=== PATIENT | female | born 1975 | race Caucasian/White ===

== ENCOUNTER 2016-11-17 03:35 | Emergency (ER) | payer SELFPAY ==
--- NOTE | 2016-11-17 03:58 | ED ---
Respiratory - HPI Summary HPI Summary: Patient presents for delayed evaluation of cough. Patient has had 1 week of nasal congestion, cough. Smokes cigarettes daily, but is around sick patrons at the [employer]. No allev factors. Aggrav by smoking. Not influenza vaccinated ever. 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 - Initial Severity: Mild Current Severity: Mild Pain Intensity: 8 Character: Cough (Nonproductive) Aggravating Factor(s): URI, Other - Cigarette smoking Alleviating Factor(s): Nothing Associated Signs and Symptoms: URI, Chest Pain with Cough, Nasal Congestion - Allergy/Home Medications Allergies/Adverse Reactions: Allergies Allergy/AdvReac Type Severity Reaction Status Date / Time Aspirin Allergy Nausea Verified 08/24/15 09:51 Banana Allergy Anaphylatic Verified 11/17/16 03:39 Shock Bee Venom Allergy Anaphylatic Verified 11/17/16 03:40 Shock Tea Allergy Anaphylatic Verified 11/17/16 03:39 Shock PMH/Surg Hx/FS Hx/Imm Hx Previously Healthy: Yes Endocrine/Hematology History: Denies: Hx Diabetes, Hx Thyroid Disease Cardiovascular History: Denies: Hx Hypertension Respiratory History: Denies: Hx Asthma, Hx Chronic Obstructive Pulmonary Disease (COPD) GI History: Denies: Hx Ulcer Infectious Disease History: No Infectious Disease History: Denies: Hx Clostridium Difficile, Hx Hepatitis, Hx Human Immunodeficiency Virus (HIV), Hx of Known/Suspected MRSA, Hx Shingles, Hx Tuberculosis, Traveled Outside the in Last 30 Days - Social History Alcohol Use: None Substance Use Type: Reports: None Smoking Status (MU): Heavy Every Day Tobacco Smoker Amount Used/How Often: 15 PER DAY Review of Systems Negative: Fever, Chills Positive: Cough. Negative: Shortness Of Breath All Other Systems Reviewed And Are Negative: Yes Physical Exam Triage Information Reviewed: Yes Vital Signs On Initial Exam: Initial Vitals Temp Pulse Resp BP Pulse Ox 97.4 F 114 18 157/99 98 11/17/16 03:40 11/17/16 03:40 11/17/16 03:40 11/17/16 03:40 11/17/16 03:40 Vital Signs Reviewed: Yes Appearance: Positive: Well-Appearing, No Pain Distress, Well-Nourished Skin: Positive: Warm, Skin Color Reflects Adequate Perfusion, Dry Head/Face: Positive: Normal Head/Face Inspection Eyes: Positive: Normal, EOMI, EHSAN ENT: Positive: Pharyngeal erythema, Nasal congestion, TMs normal. Negative: Nasal drainage, TM bulging, TM dull, TM red, Tonsillar swelling, Tonsillar exudate, Trismus, Muffled/hoarse voice, Dental tenderness Neck: Positive: Supple, Nontender, No Lymphadenopathy Respiratory/Lung Sounds: Positive: Clear to Auscultation, Breath Sounds Present Cardiovascular: Positive: Normal, RRR, Pulses are Symmetrical in both Upper and Lower Extremities Abdomen Description: Positive: Nontender, No Organomegaly, Soft Musculoskeletal: Positive: Normal, Strength/ROM Intact Neurological: Positive: Normal, Sensory/Motor Intact, Alert, Oriented to Person Place, Time, CN Intact II-III, Normal Gait Diagnostics - Vital Signs Vital Signs Temp Pulse Resp BP Pulse Ox 11/17/16 03:40 97.4 F 114 18 157/99 98 - Laboratory Lab Statement: Any lab studies that have been ordered have been reviewed, and results considered in the medical decision making process. Disposition - Differential Dx - Cardiopulmonary Differential Diagnoses - Cardiopulmonary: Bronchitis, Lower Resp Infection, Other - Primary cocnern for URI with subsequent bronchitis; however, will eval for pneumonia and influenza. Discussed smoking cessation for more than 5 minutes. She and felt as if she deserved 5 days off from work, but did not want to stop smoking. - Diagnoses Provider Diagnoses: Bronchitis Discharge - Discharge Plan Condition: Stable Disposition: HOME Prescriptions: Albuterol HFA INHALER* [Ventolin HFA Inhaler*] 2 puff INH Q4H PRN #1 mdi PRN Reason: Cough Benzonatate CAP* [Tessalon CAP*] 100 mg PO TID #30 cap Forms: *Work Release Referrals: Yong Bradley MD [Primary Care Provider] -
[2016-11-17 04:56] VITALS: BP 152/94
--- NOTE | 2016-11-17 07:59 | RAD ---
INDICATION: Cough, low-grade fever, achiness for one week without improvement. Nausea and vomiting. Decreased appetite. Intermittent tobacco use. COMPARISON: May 23, 2012 TECHNIQUE: Dual energy PA and routine lateral views of the chest were obtained. REPORT: Mildly elevated lung volumes. Minimal prominence of the interstitial markings. No alveolar consolidation, focal pulmonary lesion, pleural effusion, pneumothorax. The heart, pulmonary vasculature, and mediastinal contours are unremarkable. Negative for free air beneath the diaphragm. Mild RIGHT convex curve of the spine centered at the lumbar sacral junction without new compared with the prior exam may be positional. IMPRESSION: Elevated lung volumes suggest potential obstructive lung disease. No evidence for pneumonia or other acute intrathoracic process.
== END 2016-11-17 04:54 | disposition home or self-care (01) ==
LOC: ED 03:35
DX: J40 Bronchitis, not specified as acute or chronic (principal); F17.210 Nicotine dependence, cigarettes, uncomplicated
CPT/HCPCS: 71020; 87502; 87651; 99283

== ENCOUNTER 2017-05-30 17:56 | Emergency (ER) | payer SELFPAY ==
[2017-05-30] MEDS ORDERED: Ibuprofen TAB* 600 MG PO ONE ×2 (19:37→20:57)
[2017-05-30] MEDS ORDERED: Cyclobenzaprine TAB* 10 MG PO ONE (19:39)
--- NOTE | 2017-05-30 20:12 | RAD ---
HISTORY: Fall, left flank pain COMPARISONS: None VIEWS: 6 , Frontal, lateral, coned-down lateral sacral, and bilateral oblique views of the lumbar spine. FINDINGS: ALIGNMENT: The alignment is normal. VERTEBRAL BODIES: The vertebral body heights are normal. The interpedicular distances are normal. There is mild anterolateral marginal osteophyte formation. JOINTS: There is mild facet hypertrophic change INTERVERTEBRAL DISCS: There is mild loss of intervertebral disc height. SOFT TISSUE: Unremarkable. OTHER: The pelvis is unremarkable. The lung bases are clear. IMPRESSION: MILD DEGENERATIVE CHANGES
--- NOTE | 2017-05-30 20:13 | RAD ---
HISTORY: Fall, hip pain COMPARISONS: None VIEWS: 3, Frontal view of the pelvis with frontal and frog-leg views of the left hip FINDINGS: BONE DENSITY: Normal. BONES: There is linear density of the left inferior pubic ramus extending to the inferior acetabulum JOINTS: There is no arthropathy. ALIGNMENT: There is no dislocation. SOFT TISSUES: Unremarkable. OTHER FINDINGS: None. IMPRESSION: POSSIBLE NONDISPLACED FRACTURE OF THE LEFT INFERIOR PUBIC RAMUS EXTENDING TO THE INFERIOR ACETABULUM. RECOMMEND CORRELATION WITH SITE OF PAIN
[2017-05-30 20:17] VITALS: BP 137/94
--- NOTE | 2017-05-30 20:53 | UC ---
Hip/Pelvis Pain - HPI Summary HPI Summary: fell last night at work landing on her lep hip---pain in her left hip - History Of Current Complaint Chief Complaint: UCBackPain Stated Complaint: BACK/HIP INJURY Time Seen by Provider: 05/30/17 19:26 Hx Obtained From: Patient Hx Last Menstrual Period: 05/08/17 ?: No Mechanism Of Injury: fall Onset/Duration: Sudden Onset, Lasting Days - 1 Timing: Constant Severity Initially: Moderate Severity Currently: Moderate Pain Intensity: 6 Pain Scale Used: 0-10 Numeric Location: Discrete At: - left hip Character Of Pain: Aching, Throbbing Aggravating Factor(s): Nothing Alleviating Factor(s): Nothing Associated Signs And Symptoms: Positive: Negative Related History: Occupational Injury - Allergies/Home Medications Allergies/Adverse Reactions: Allergies Allergy/AdvReac Type Severity Reaction Status Date / Time Aspirin Allergy Nausea Verified 05/30/17 18:08 Banana Allergy Anaphylatic Verified 05/30/17 18:08 Shock Bee Venom Allergy Anaphylatic Verified 05/30/17 18:08 Shock Tea Allergy Anaphylatic Verified 05/30/17 18:08 Shock PMH/Surg Hx/FS Hx/Imm Hx Previously Healthy: Yes - Surgical History Surgical History: None - Family History Known Family History: Positive: None - Social History Occupation: Employed Full-time Lives: With Family Alcohol Use: None Substance Use Type: None Smoking Status (MU): Heavy Every Day Tobacco Smoker Amount Used/How Often: 15 PER DAY Household Exposure Type: Cigarettes Cessation Counseling: Patient Advised to Stop Review of Systems Constitutional: Negative Skin: Negative Eyes: Negative ENT: Negative Respiratory: Negative Cardiovascular: Negative Gastrointestinal: Negative Genitourinary: Negative Motor: Negative Neurovascular: Negative Musculoskeletal: Arthralgia - left hip/pelvis Neurological: Negative Psychological: Negative All Other Systems Reviewed And Are Negative: Yes Physical Exam Triage Information Reviewed: Yes Appearance: Well-Appearing, Well-Nourished, Pain Distress - mild Vital Signs: Initial Vital Signs Temp 98.2 F 05/30/17 18:05 Pulse 109 05/30/17 18:05 Resp 18 05/30/17 18:05 BP 132/87 05/30/17 18:05 Pulse Ox 100 05/30/17 18:05 Vital Signs Reviewed: Yes Eye Exam: Normal Eyes: Positive: Conjunctiva Clear ENT Exam: Normal ENT: Positive: Normal ENT inspection, Hearing grossly normal Dental Exam: Normal Neck exam: Normal Neck: Positive: Supple, Nontender Respiratory Exam: Normal Respiratory: Positive: Chest non-tender, Lungs clear, Normal breath sounds, No respiratory distress, No accessory muscle use Cardiovascular Exam: Normal Cardiovascular: Positive: RRR, No Murmur, Pulses Normal, Brisk Capillary Refill Abdominal Exam: Normal Abdomen Description: Positive: Nontender, No Organomegaly, Soft Bowel Sounds: Positive: Present Musculoskeletal Exam: Normal Musculoskeletal: Positive: Strength Intact, ROM Intact, No Edema Neurological Exam: Normal Neurological: Positive: Alert, Muscle Tone Normal Psychological Exam: Normal Skin Exam: Normal Diagnostics - Radiology No standard instances Xray Interpretation: Positive (See Comments) - left inferior pubic rami non displaced fracture Radiology Interpretation Completed By: ED Physician, Radiologist Hip Injury Course/Dx - Course Course Of Treatment: non weight bearing, ibuprofen, ibuprofen close follow with Dr. Caldwell - Differential Dx/Diagnosis Differential Diagnosis/HQI/PQRI: Contusion, Fracture, Sprain, Strain Provider Diagnoses: left non displaced inferior pubic rami fracture Discharge - Discharge Plan Condition: Stable Disposition: HOME Prescriptions: Cyclobenzaprine TAB* [Flexeril 10 MG TAB*] 10 mg PO TID PRN #15 tab PRN Reason: muscle spasm Ibuprofen TAB* [Motrin TAB* 600 MG] 600 mg PO Q6H PRN #40 tab PRN Reason: pain Patient Education Materials: Crutch Instructions (ED), Pelvic Fracture (ED), Ice Pack Application (ED) Forms: *Work Release Referrals: Fer Caldwell MD [Medical Doctor] - 1 Day
== END 2017-05-30 21:13 | disposition home or self-care (01) ==
LOC: UCEAST 17:56
DX: S32.502A Unspecified fracture of left pubis, initial encounter for closed fracture (principal); W19.XXXA Unspecified fall, initial encounter; Y93.9 Activity, unspecified; Y92.9 Unspecified place or not applicable; Y99.0 Civilian activity done for income or pay; M51.37 Other intervertebral disc degeneration, lumbosacral region; Z32.02 Encounter for pregnancy test, result negative; Z88.6 Allergy status to analgesic agent; F17.210 Nicotine dependence, cigarettes, uncomplicated
CPT/HCPCS: 72110; 81003; 84702; 99213; A9270-GY; G0463

== ENCOUNTER 2017-06-08 17:05 | Emergency (ER) | payer SELFPAY ==
[2017-06-08] MEDS ORDERED: Ketorolac INJ* 60 MG/2 ML VIAL IM ONE (19:37)
--- NOTE | 2017-06-08 20:34 | RAD ---
Indication: Pelvic fracture. CT of the pelvis was performed in the axial plane. Sagittal and coronal reconstructed images were obtained. Correlation is made with the previous x-ray dated May 30, 2017. There is no evidence of fracture noted. Inferior pubic ramus is otherwise unremarkable. Hip joints demonstrates mild degenerative changes. The femoral head and neck are otherwise unremarkable. IMPRESSION: No fracture of the pelvis is noted.
--- NOTE | 2017-06-08 20:49 | ED ---
Jeovany Elise Rebecca, scribed for Nawaf Davis MD on 06/08/17 at 1936 . Lower Extremity - HPI Summary HPI Summary: Pt is a 42 y/o F who presents to ED c/o LLE pain, tingling and numbness. Pain is currently severe, ranked 8/10. Pt reports that she fell at work last Sunday (10 days ago) and had an XR done at [facility] 9 days ago that reveals a fractured pelvis on the left side. Confirms that she is going through worker's compensation. Pt reports that start a "couple" days ago, she began experiencing LLE tingling and numbness down the entire LLE with worsening pain. Has been taking 600 mg Ibuprofen and Flexeril for the pain. Confirms that she was seen by a physician 1 week ago. - History of Current Complaint Chief Complaint: EDExtremityLower Stated Complaint: LT LEG SWOLLEN/LOSING FEELING Time Seen by Provider: 06/08/17 19:28 Hx Obtained From: Patient Hx Last Menstrual Period: 05/08/17 Onset of Pain: Prior to Arrival Onset/Duration: Days - Pain - 10 dyas ago Tingling/numbness - "couple" days ago Severity Currently: Severe Pain Intensity: 8 Pain Scale Used: 0-10 Numeric Location: Is Discrete @ - Down the entire LLE Associated Signs And Symptoms: Positive: Other - NUmbness, tingling Related History: Occupational Injury - Allergies/Home Medications Allergies/Adverse Reactions: Allergies Allergy/AdvReac Type Severity Reaction Status Date / Time Aspirin Allergy Nausea Verified 06/08/17 18:51 Banana Allergy Anaphylatic Verified 06/08/17 18:51 Shock Bee Venom Allergy Anaphylatic Verified 06/08/17 18:51 Shock Tea Allergy Anaphylatic Verified 06/08/17 18:51 Shock PMH/Surg Hx/FS Hx/Imm Hx Endocrine/Hematology History: Denies: Hx Diabetes, Hx Thyroid Disease Cardiovascular History: Denies: Hx Hypertension Respiratory History: Denies: Hx Asthma, Hx Chronic Obstructive Pulmonary Disease (COPD) GI History: Denies: Hx Ulcer Infectious Disease History: No Infectious Disease History: Denies: Hx Clostridium Difficile, Hx Hepatitis, Hx Human Immunodeficiency Virus (HIV), Hx of Known/Suspected MRSA, Hx Shingles, Hx Tuberculosis, Traveled Outside the [place] in Last 30 Days - Family History Known Family History: Positive: Cardiac Disease, Hypertension, Diabetes, Other - CVA - Social History Alcohol Use: None Substance Use Type: Reports: None Hx Tobacco Use: Yes Smoking Status (MU): Heavy Every Day Tobacco Smoker Amount Used/How Often: 15 PER DAY Review of Systems Positive: Other - LLE pain Positive: Numbness - LLE tingling/numbness All Other Systems Reviewed And Are Negative: Yes Physical Exam Triage Information Reviewed: Yes Vital Signs On Initial Exam: Initial Vitals Temp Pulse Resp BP Pulse Ox 97.5 F 107 20 129/72 97 06/08/17 17:08 06/08/17 17:08 06/08/17 17:08 06/08/17 17:08 06/08/17 17:08 Vital Signs Reviewed: Yes Appearance: Positive: Well-Appearing, Pain Distress - mild discomfort Skin: Positive: Warm Head/Face: Positive: Normal Head/Face Inspection ENT: Positive: Hearing grossly normal Respiratory/Lung Sounds: Positive: Breath Sounds Present Abdomen Description: Positive: Nontender, Soft Musculoskeletal: Positive: Other - no pelvic compression tenderness, from at lt hip with mild pain, no deformity Neurological: Positive: Alert, Oriented to Person Place, Time, Normal Gait Psychiatric: Positive: Affect/Mood Appropriate - [place] Coma Scale Coma Scale Total: 15 Diagnostics - Vital Signs Vital Signs Temp Pulse Resp BP Pulse Ox 06/08/17 18:45 97.5 F 100 18 133/83 100 06/08/17 17:08 97.5 F 107 20 129/72 97 - Laboratory Lab Statement: Any lab studies that have been ordered have been reviewed, and results considered in the medical decision making process. - CT LLE CT CT Interpretation: No Acute Changes - No fracture of the pelvis is noted. ED physician reviewed this radiology report and agrees. CT Interpretation Completed By: Radiologist Re-Evaluation - Re-Evaluation First Eval Re-Evaluation Time: 20:41 Comment: Discussed CT results and D/C plan. Lower Extremity Course/Dx - Course Assessment/Plan: Pt is a 42 y/o F who presents to ED c/o LLE pain, tingling and numbness. Pain is currently severe, ranked 8/10. Pt reports that she fell at work last Sunday (10 days ago) and had an XR done at [facility] 9 days ago that reveals a fractured pelvis on the left side. Confirms that she is going through worker's compensation. Pt reports that start a "couple" days ago, she began experiencing LLE tingling and numbness down the entire LLE with worsening pain. Has been taking 600 mg Ibuprofen and Flexeril for the pain. Confirms that she was seen by a physician [address] is negative. In the ED course, pt received Toradol. Pt will be D/C to home with Dx of groin strain and a follow up with her PCP. She understands and agrees. Elevated BP noted and advised to f/u with PCP. - Diagnoses Provider Diagnoses: Groin strain Discharge - Discharge Plan Condition: Stable Disposition: HOME Patient Education Materials: Groin Strain (ED) Referrals: Yong Bradley MD [Primary Care Provider] - 3 Days The documentation as recorded by the Jeovany helton Rebecca accurately reflects the service I personally performed and the decisions made by me, Nawaf Davis MD.
[2017-06-08 21:06] VITALS: BP 137/97
== END 2017-06-08 21:05 | disposition home or self-care (01) ==
LOC: ED 17:05
DX: S76.212A Strain of adductor muscle, fascia and tendon of left thigh, initial encounter (principal); W19.XXXA Unspecified fall, initial encounter; Y92.89 Other specified places as the place of occurrence of the external cause; F17.210 Nicotine dependence, cigarettes, uncomplicated
CPT/HCPCS: 96372; 99282; J1885

== ENCOUNTER 2017-07-18 23:35 | Emergency (ER) | payer SELFPAY ==
[2017-07-19] MEDS ORDERED: Penicillin VK TAB* 250 MG PO ONE (04:20)
[2017-07-19] MEDS ORDERED: HYDROcodone/ACETAMIN 5-325 MG* 1 TAB PO ONE ×2 (04:26→04:28)
[2017-07-19 05:10] VITALS: BP 126/89
--- NOTE | 2017-07-19 07:40 | ED ---
Tg Elise Abhishek, scribed for Zachary Angeles MD on 07/19/17 at 0612 . Complex/Multi-Sys Presentation - HPI Summary HPI Summary: This patient is a 42 year old F presenting to [facility] accompanied by male with a chief complaint of dental pain since 2099. The CC is described as sore and throbbing. The patient rates the pain 10/10 in severity. Symptoms aggravated by nothing. Symptoms alleviated by nothing. Patient reports pain in right side of jaw, and pain radiates to the side of forehead up to the eye. Patient denies foul discharge, intake of medication. Pt states she will follow up with a dentist. Allergy to ASA. - History Of Current Complaint Chief Complaint: EDDentalPain Time Seen by Provider: 07/19/17 04:14 Hx Obtained From: Patient Onset/Duration: Lasting Hours, Still Present Severity Currently: Severe - 1010 Location: Pain At: - Right side of the jaw, Radiates To: - The side of forehead up to the eye Character: Throbbing Aggravating Factor(s): Nothing Alleviating Factor(s): Nothing Associated Signs And Symptoms: Positive: Other - NEGATIVE: Foul discharge - Allergies/Home Medications Allergies/Adverse Reactions: Allergies Allergy/AdvReac Type Severity Reaction Status Date / Time Aspirin Allergy Nausea Verified 07/18/17 23:47 Banana Allergy Anaphylatic Verified 07/18/17 23:47 Shock Bee Venom Allergy Anaphylatic Verified 07/18/17 23:47 Shock Tea Allergy Anaphylatic Verified 07/18/17 23:47 Shock PMH/Surg Hx/FS Hx/Imm Hx Endocrine/Hematology History: Denies: Hx Diabetes, Hx Thyroid Disease Cardiovascular History: Denies: Hx Hypertension Respiratory History: Denies: Hx Asthma, Hx Chronic Obstructive Pulmonary Disease (COPD) GI History: Denies: Hx Ulcer Infectious Disease History: No Infectious Disease History: Denies: Hx Clostridium Difficile, Hx Hepatitis, Hx Human Immunodeficiency Virus (HIV), Hx of Known/Suspected MRSA, Hx Shingles, Hx Tuberculosis, Traveled Outside the [place] in Last 30 Days - Family History Known Family History: Positive: Cardiac Disease, Hypertension, Diabetes, Other - CVA - Social History Alcohol Use: None Substance Use Type: Reports: None Hx Tobacco Use: Yes Smoking Status (MU): Heavy Every Day Tobacco Smoker Amount Used/How Often: 15 PER DAY Review of Systems Negative: Fever Positive: Dental Pain, Other - NEGATIVE: Foul discharge All Other Systems Reviewed And Are Negative: Yes Physical Exam - Summary Physical Exam Summary: General: moderate pain distress, no pain distress Skin: warm, color reflects adequate perfusion, dry Head: normal Eyes: EOMI, EHSAN ENT: TM normal, left upper molar cavities and decay with tenderness to percussion Neck: supple, nontender Respiratory: CTA, breath sounds present Cardiovascular: RRR Abdomen: soft, nontender Bowel: present Musculoskeletal: normal, strength/ROM intact Neurological: normal, sensory/motor intact, A&O x3 Psychological: affect/mood appropriate Triage Information Reviewed: Yes Vital Signs On Initial Exam: Initial Vitals Temp Pulse Resp BP Pulse Ox 99.1 F 102 16 150/99 97 07/18/17 23:40 07/18/17 23:40 07/18/17 23:40 07/18/17 23:40 07/18/17 23:40 Vital Signs Reviewed: Yes - [place] Coma Scale Coma Scale Total: 15 Diagnostics - Vital Signs Vital Signs Temp Pulse Resp BP Pulse Ox 07/19/17 05:09 97.8 F 96 18 126/89 97 07/19/17 02:05 98.4 F 88 16 132/91 97 07/18/17 23:40 99.1 F 102 16 150/99 97 - Laboratory Lab Statement: Any lab studies that have been ordered have been reviewed, and results considered in the medical decision making process. Complex Multi-Symp Course/Dx Assessment/Plan: Allergies noted. Medications reviewed. Elevated BP noted. RX PCN AND NORCO. F/U DENTIST. NO CRITICAL CARE TIME. - Diagnoses Provider Diagnoses: Dental infection, Pain, dental Discharge - Discharge Plan Condition: Stable Disposition: HOME Prescriptions: HYDROcodone/ACETAMIN 5-325 MG* [Alborn 5-325 TAB*] 1 tab PO Q4H PRN #15 tab MDD 6 PRN Reason: Pain Penicillin VK 500 MG TAB(NF) [Penicillin VK 500 mg Tab] 500 mg PO QID #39 tab Patient Education Materials: Toothache (ED) Referrals: Yong Bradley MD [Primary Care Provider] - Additional Instructions: FOLLOW UP WITH YOUR DENTIST. RETURN TO THE EMERGENCY DEPARTMENT FOR ANY WORSENING OF YOUR CONDITION OR QUESTIONS OR CONCERNS. The documentation as recorded by the Tg helton Abhishek accurately reflects the service I personally performed and the decisions made by me, Zachary Angeles MD.
== END 2017-07-19 05:10 | disposition home or self-care (01) ==
LOC: ED 23:35
DX: K04.7 Periapical abscess without sinus (principal); K08.89 Other specified disorders of teeth and supporting structures; Z88.6 Allergy status to analgesic agent; F17.210 Nicotine dependence, cigarettes, uncomplicated
CPT/HCPCS: 99282; A9270-GY